=== PATIENT | female | born 1980 | race Caucasian/White ===

== ENCOUNTER 2021-05-18 07:50 | Inpatient (IN) | payer OTHER ==
[2021-05-18] MEDS ORDERED: DEXTROSE 5%-LACTATED RINGERS 1,000 ML IV SCH (08:30)
[2021-05-18] MEDS ORDERED: PROMETHAZINE HCL 25 MG/1 ML VIAL IVPB ONE (08:30)
[2021-05-18] MEDS ORDERED: BUTORPHANOL TARTRATE 2 MG/ML VIAL IVPB ONE (08:30)
[2021-05-18] MEDS ORDERED: BUTORPHANOL TARTRATE 2 MG/ML VIAL ONE (09:29)
[2021-05-18] MEDS ORDERED: PROMETHAZINE HCL 25 MG/1 ML VIAL ONE (09:29)
[2021-05-18 10:34] LABS: BASO % 0.5 % (0-2.0); EOS % 0.7 % (0-4.5); HEMATOCRIT 37.5 % (32.4-45.2); HEMOGLOBIN 12.9 GM/dL (10.7-15.3); LYMPH % 17.7 % (8-40); MCH 31.3 pg (25.7-33.7); MCHC 34.5 g/dl (32.0-36.0); MEAN CELL VOLUME 90.7 fl (80-96); MEAN PLT VOLUME 9.5 fl (7.5-11.1); MONO % 7.9 % (3.8-10.2); NEUT % 73.2 % (42.8-82.8); PLATELET COUNT 183 10^3/uL (134-434); RBC 4.13 M/mm3 (3.60-5.2); WHITE BLOOD COUNT 10.8 K/mm3 (4.0-10.0)
[2021-05-18 10:42] LABS: INR 0.93 (0.83-1.09); PROTHROMBIN TIME (PATIENT) 10.7 SEC (9.7-13.0)
[2021-05-18 10:44] LABS: ACTIVATED PTT 30.4 SECONDS (25.2-36.5)
[2021-05-18 10:45] VITALS: BMI 31.1
[2021-05-18 10:57] LABS: BLOOD UREA NITROGEN 9.9 mg/dL (7-18)
[2021-05-18 11:00] LABS: CREATININE 0.5 mg/dL (0.55-1.3)
[2021-05-18] MEDS ORDERED: OXYTOCIN 20 UNITS in 0.9% NS 20 UNIT/1,000 ML INFUS.BAG IV ONE (11:59)
[2021-05-18] MEDS ORDERED: WITCH HAZEL 50% (TUCKS) 40 PAD/JAR PAD TP PRN (12:17)
[2021-05-18] MEDS ORDERED: BENZOCAINE 20% 57 GM BOTTLE TP PRN (12:17)
[2021-05-18] MEDS ORDERED: METHYLERGONOVINE MALEATE 0.2 MG/1 ML AMP IM PRN (12:17)
[2021-05-18] MEDS ORDERED: BENZOCAINE 28 GM HEMORRHOIDAL OINTMENT TP PRN (12:17)
[2021-05-18] MEDS ORDERED: ACETAMINOPHEN 325 MG TABLET (FP) PO PRN (12:17)
[2021-05-18] MEDS ORDERED: oxyCODONE HCL 5 MG TABLET PO PRN (12:17)
[2021-05-18] MEDS ORDERED: BISACODYL 10 MG SUPP.RECT RC PRN (12:17)
[2021-05-18] MEDS ORDERED: OXYTOCIN 20 UNITS in 0.9% NS 20 UNIT/1,000 ML INFUS.BAG IV SCH (12:30)
[2021-05-18 12:58] LABS: CORD HCO3 22.8 mmHg (20-29); CORD PCO2 47.2 mmHg (30-78); CORD pH 7.301 (7.14-7.44)
[2021-05-18 13:00] LABS: CORD BASE EXCESS -5.3 mmol/L (0-2); CORD HCO3 23.8 mmHg (20-29); CORD PCO2 59.8 mmHg (30-78); CORD pH 7.217 (7.14-7.44)
[2021-05-18 15:13] LABS: METHADONE, UR NEGATIVE (NEGATIVE); PHENCYCLIDINE,URINE NEGATIVE (NEGATIVE); URINE BENZODIAZEPINES NEGATIVE (NEGATIVE)
[2021-05-18 15:14] LABS: COCAINE, UR NEGATIVE (NEGATIVE); OPIATES, URI NEGATIVE (NEGATIVE); URINE BARBITURATES NEGATIVE (NEGATIVE)
[2021-05-18 15:15] LABS: URINE AMPHETAMINES NEGATIVE (NEGATIVE)
[2021-05-18] MEDS: IBUPROFEN 600 MG TABLET (FP) PO PRN (18:21)
[2021-05-19 09:04] LABS: BASO % 0.5 % (0-2.0); EOS % 1.3 % (0-4.5); HEMATOCRIT 33.2 % (32.4-45.2); HEMOGLOBIN 11.2 GM/dL (10.7-15.3); LYMPH % 19.6 % (8-40); MCH 31.2 pg (25.7-33.7); MCHC 33.9 g/dl (32.0-36.0); MEAN CELL VOLUME 92.2 fl (80-96); MEAN PLT VOLUME 9.8 fl (7.5-11.1); MONO % 9.6 % (3.8-10.2); PLATELET COUNT 169 10^3/uL (134-434); RDW 14.2 % (11.6-15.6)
[2021-05-19] MEDS: IBUPROFEN 600 MG TABLET (FP) PO PRN (20:13)
[2021-05-19] MEDS ORDERED: SENNOSIDES/DOCUSATE COMBO (SENNA PLUS) TABLET (UD) PO PRN (22:00)
[2021-05-20] MEDS: IBUPROFEN 600 MG TABLET (FP) PO PRN (05:50)
[2021-05-20 10:23] VITALS: BP 143/76; PULSE 84; TEMP 98.1
== END 2021-05-20 11:30 | disposition home or self-care (01) | DRG 560 ==
LOC: JDEL 07:50 → EDBD 07:50 → JLDR 08:30 → J3W 15:00
PROVIDERS: ADMIT Obstetrics & Gynecology; ATTEND Obstetrics & Gynecology
PROC: 10E0XZZ Delivery of Products of Conception, External Approach (ICD-10-PCS; principal; 2021-05-18)
PROC: 10907ZC Drainage of Amniotic Fluid, Therapeutic from Products of Conception, Via Natural or Artificial Opening (ICD-10-PCS; 2021-05-18)
DX: O80 Encounter for full-term uncomplicated delivery (principal); Z3A.38 38 weeks gestation of pregnancy; Z37.0 Single live birth
CPT/HCPCS: 36415; 36600; 59409; 80048; 80307; 82803; 85025; 85610; 85730; 86762; 86780; 86850; 86900; 86901; 87340; C9803; U0003; U0005

== ENCOUNTER 2021-05-22 14:15 | Emergency (ER) | payer OTHER ==
[2021-05-22 14:25] VITALS: BP 124/94; PULSE 84; TEMP 98.1; BMI 29.5
[2021-05-22 15:34] LABS: BASO % 0.6 % (0-2.0); HEMATOCRIT 36.3 % (32.4-45.2); HEMOGLOBIN 12.4 GM/dL (10.7-15.3); LYMPH % 20.5 % (8-40); MCH 31.2 pg (25.7-33.7); MCHC 34.2 g/dl (32.0-36.0); MEAN CELL VOLUME 91.3 fl (80-96); MEAN PLT VOLUME 8.8 fl (7.5-11.1); MONO % 7.1 % (3.8-10.2); NEUT % 68.8 % (42.8-82.8); PLATELET COUNT 235 10^3/uL (134-434); RBC 3.98 M/mm3 (3.60-5.2); WHITE BLOOD COUNT 8.9 K/mm3 (4.0-10.0)
[2021-05-22 15:48] LABS: EPI CELLS 8 /uL (0-25.1); HYALINE CASTS 1 /uL (0-3.1); PH,URINE 6.5 (5.0-8.0); URINE APPEARANCE CLEAR; URINE BACTERIA 362 /uL (0-1359); URINE BILIRUBIN NEGATIVE (NEGATIVE); URINE COLOR YELLOW; URINE GLUCOSE (UA) NEGATIVE (NEGATIVE); URINE KETONE NEGATIVE (NEGATIVE); URINE LEUK ESTERASE 2+ (NEGATIVE); URINE NITRITE NEGATIVE (NEGATIVE); URINE PROTEIN NEGATIVE (NEGATIVE); URINE RBC 10 /uL (0-23.9); URINE UROBILINOGEN 0.2 mg/dL (0.2-1.0); URINE WBC 120 /uL (0-25.8)
[2021-05-22 15:52] LABS: CALCIUM 8.9 mg/dL (8.5-10.1)
[2021-05-22 15:54] LABS: ALBUMIN 2.9 g/dl (3.4-5.0); BLOOD UREA NITROGEN 9.9 mg/dL (7-18); MAGNESIUM 1.9 mg/dL (1.8-2.4)
[2021-05-22 15:56] LABS: CREATININE 0.5 mg/dL (0.55-1.3); URIC ACID 4.1 mg/dL (2.6-7.2)
[2021-05-22 15:58] LABS: BILIRUBIN,TOTAL 0.2 mg/dL (0.2-1); TOT PROT 6.5 g/dl (6.4-8.2)
[2021-05-22] MEDS ORDERED: IBUPROFEN 600 MG TABLET (FP) PO ONE ×2 (16:38→16:44)
[2021-05-22] MEDS ORDERED: LABETALOL HCL 100 MG TABLET (FP) PO ONE (17:47)
[2021-05-22] MEDS ORDERED: LABETALOL HCL 100 MG TABLET (FP) ONE (18:52)
== END 2021-05-22 19:07 | disposition home or self-care (01) ==
LOC: JER 14:15
DX: R51.9 Headache, unspecified (principal); R03.0 Elevated blood-pressure reading, without diagnosis of hypertension
CPT/HCPCS: 36415; 70450-TC; 80053; 81003; 83615; 83735; 84550; 85025; 99284-25

== ENCOUNTER 2021-11-29 09:25 | Emergency (ER) | payer OTHER ==
[2021-11-29 09:42] VITALS: BP 156/69; PULSE 95; RESP 18; TEMP 97.9; BMI 29.2
[2021-11-29] MEDS ORDERED: ACETAMINOPHEN 500 MG TABLET (FP) PO ONE (10:04)
[2021-11-29] MEDS ORDERED: ACETAMINOPHEN INJECTION 0 ML IVPB ONE (10:12)
[2021-11-29] MEDS ORDERED: ACETAMINOPHEN 500 MG TABLET (FP) ONE (11:52)
[2021-11-29 11:56] LABS: BASO % 0.7 % (0-2.0); EOS % 1.8 % (0-4.5); HEMATOCRIT 41.1 % (32.4-45.2); HEMOGLOBIN 13.5 GM/dL (10.7-15.3); LYMPH % 23.7 % (8-40); MCH 29.9 pg (25.7-33.7); MCHC 32.8 g/dl (32.0-36.0); MEAN CELL VOLUME 91.3 fl (80-96); MEAN PLT VOLUME 9.4 fl (7.5-11.1); MONO % 7.3 % (3.8-10.2); NEUT % 66.5 % (42.8-82.8); PH,URINE 6.5 (5.0-8.0); PLATELET COUNT 242 10^3/uL (134-434); RBC 4.51 M/mm3 (3.60-5.2); RDW 13.5 % (11.6-15.6); URINE APPEARANCE CLEAR; URINE BILIRUBIN NEGATIVE (NEGATIVE); URINE COLOR DK YELLOW; URINE GLUCOSE (UA) NEGATIVE (NEGATIVE); URINE KETONE NEGATIVE (NEGATIVE); URINE LEUK ESTERASE NEGATIVE (NEGATIVE); URINE NITRITE NEGATIVE (NEGATIVE); URINE PROTEIN NEGATIVE (NEGATIVE); URINE UROBILINOGEN 0.2 mg/dL (0.2-1.0); WHITE BLOOD COUNT 7.4 K/mm3 (4.0-10.0)
[2021-11-29 12:12] LABS: CHLORIDE 105 mmol/L (98-107); SODIUM 140 mmol/L (136-145)
[2021-11-29 12:13] LABS: CALCIUM 8.9 mg/dL (8.5-10.1)
[2021-11-29 12:14] LABS: ANION GAP 10 MMOL/L (8-16); BLOOD UREA NITROGEN 11.2 mg/dL (7-18); CO2 24 mmol/L (21-32); GLUCOSE,RANDOM 98 mg/dL (74-106)
[2021-11-29 12:17] LABS: CREATININE 0.5 mg/dL (0.55-1.3)
== END 2021-11-29 12:56 | disposition home or self-care (01) ==
LOC: JERFT 09:25 → JER 09:25 → JERFT 12:56
DX: O26.891 Other specified pregnancy related conditions, first trimester (principal); Z3A.01 Less than 8 weeks gestation of pregnancy
CPT/HCPCS: 36415; 76817-TC; 80048; 81003; 84702; 85025; 86850; 86900; 86901; 87086; 99284-25

== ENCOUNTER 2021-12-04 12:16 | Emergency (ER) | payer OTHER ==
[2021-12-04 12:24] VITALS: BP 122/75; PULSE 77; RESP 18; TEMP 97; BMI 30.4
== END 2021-12-04 16:58 | disposition home or self-care (01) ==
LOC: JER 12:16
DX: O02.1 Missed abortion (principal)
CPT/HCPCS: 36415; 76817-TC; 84702; 99284-25

== ENCOUNTER 2021-12-20 14:32 | Emergency (ER) | payer OTHER ==
[2021-12-20 14:37] VITALS: BP 115/74; PULSE 62; RESP 18; TEMP 97; BMI 29.5
[2021-12-20] MEDS ORDERED: IBUPROFEN 400 MG TABLET (FP) PO ONE ×2 (15:26→15:30)
[2021-12-20] MEDS ORDERED: DIPHTH,PERTUSS(ACELL),TET 0.5 ML DISP.SYRIN IM ONE ×2 (15:26→15:30)
== END 2021-12-20 18:12 | disposition home or self-care (01) ==
LOC: JERFT 14:32
PROC: 3E0234Z Introduction of Serum, Toxoid and Vaccine into Muscle, Percutaneous Approach (ICD-10-PCS; principal; 2021-12-20)
DX: R51.9 Headache, unspecified (principal); M79.673 Pain in unspecified foot; M54.50 Low back pain, unspecified; W20.8XXA Other cause of strike by thrown, projected or falling object, initial encounter
CPT/HCPCS: 70450-TC; 72100-TC-FY; 73630-TC-RT-FY; 90471; 90715; 99284-25

== ENCOUNTER 2023-09-24 21:45 | Emergency (ER) | payer OTHER ==
[2023-09-24 21:53] VITALS: BP 142/81; PULSE 68; RESP 17; TEMP 98; BMI 32.1
[2023-09-24 22:46] LABS: BASO % 1.2 % (0-2.0); EOS % 2.4 % (0-4.5); HEMATOCRIT 38.2 % (32.4-45.2); HEMOGLOBIN 13.1 GM/dL (10.7-15.3); LYMPH % 30.4 % (8-40); MCH 30.6 pg (25.7-33.7); MCHC 34.3 g/dl (32.0-36.0); MEAN CELL VOLUME 89.4 fl (80-96); MEAN PLT VOLUME 9.2 fl (7.5-11.1); PLATELET COUNT 292 10^3/uL (134-434); RBC 4.28 M/mm3 (3.60-5.2); RDW 13.3 % (11.6-15.6); WHITE BLOOD COUNT 9.8 K/mm3 (4.0-10.0)
[2023-09-24 22:54] LABS: INR 0.95 (0.83-1.09); PROTHROMBIN TIME (PATIENT) 10.9 SEC (9.7-13.0)
[2023-09-24 22:57] LABS: ACTIVATED PTT 35.1 SECONDS (25.2-36.5)
[2023-09-24 23:00] LABS: POTASSIUM 3.9 mmol/L (3.5-5.1)
[2023-09-24 23:02] LABS: CALCIUM 8.5 mg/dL (8.5-10.1)
[2023-09-24 23:03] LABS: ALBUMIN 3.6 g/dl (3.4-5.0); BLOOD UREA NITROGEN 16.7 mg/dL (7-18)
[2023-09-24 23:06] LABS: CREATININE 0.7 mg/dL (0.55-1.3)
[2023-09-24 23:08] LABS: BILIRUBIN,TOTAL 0.2 mg/dL (0.2-1)
== END 2023-09-24 23:59 | disposition home or self-care (01) ==
LOC: JER 21:45
DX: R07.89 Other chest pain (principal); R06.02 Shortness of breath; Z20.822 Contact with and (suspected) exposure to COVID-19
CPT/HCPCS: 0241U-QW; 36415; 71046-TC-FY; 80053; 84484; 84703; 85025; 85379; 85610; 85730; 93005; 93010; 99284-25

== ENCOUNTER 2024-12-12 22:55 | Emergency (ER) | payer BC, OTHER ==
[2024-12-12 23:11] VITALS: TEMP 98.2; BMI 29.8
[2024-12-12 23:41] VITALS: BP 139/81; PULSE 65; RESP 16
[2024-12-12] MEDS ORDERED: MAG HYDROX/AL HYDROX/SIMETH 30 ML UNIT-DOSE CUP ONE (23:44)
[2024-12-12] MEDS ORDERED: ONDANSETRON 4 MG/2 ML VIAL ONE (23:44)
[2024-12-12] MEDS ORDERED: ACETAMINOPHEN INJECTION 100 ML ONE (23:44)
[2024-12-12] MEDS ORDERED: FAMOTIDINE 20 MG/50 ML IVPB 20 MG/50 ML MG IVPB ONE (23:44)
[2024-12-13] MEDS: MAG HYDROX/AL HYDROX/SIMETH 30 ML UNIT-DOSE CUP PO ONE (00:02)
[2024-12-13] MEDS: ACETAMINOPHEN 1000 MG/100 ML BAG IVPB ONE (00:39)
[2024-12-13] MEDS: ONDANSETRON 4 MG/2 ML VIAL IVPUSH ONE (00:39)
[2024-12-13] MEDS: FAMOTIDINE 20 MG/50 ML IVPB 20 MG/50 ML MG IVPB ONE (00:39)
[2024-12-13 00:59] LABS: ABSOLUTE IMMATURE GRANULOCYTES 0.02 x10^3/uL (0.0-0.031); BASOPHILS # 0.06 x10^3/uL (0.01-0.08); EOSINOPHIL % 2.5 % (0.7-5.8); EOSINOPHILS # 0.19 x10^3/uL (0.04-0.36); MCHC 32.8 g/dl (32.2-35.5); MEAN CELL VOLUME 91.6 fl (79.4-94.8); MEAN PLT VOLUME 10.9 fl (9.4-12.3); MONOCYTE # 0.61 x10^3/uL (0.24-0.86); MONOCYTE % 8.1 % (4.7-12.5); RDW 12.1 % (12.2-17.1)
[2024-12-13 01:23] LABS: GLUCOSE,RANDOM 98.0 mg/dL (74-106)
[2024-12-13 01:24] LABS: TOT PROT 6.5 g/dl (6.4-8.2)
[2024-12-13 01:25] LABS: CO2 23.0 mmol/L (21-32)
[2024-12-13 01:26] LABS: ALK PHOS 58.0 U/L (40-150)
[2024-12-13 01:29] LABS: SGOT/AST 24.0 U/L (5-34); SGPT/ALT 25.0 U/L (0-55)
[2024-12-13 01:30] LABS: CREATININE 0.51 mg/dL (0.55-1.3)
[2024-12-13 01:48] LABS: HCV DIAGNOSTIC IN-HOUSE W/RFLX NON-REACTIVE (NONREACTIVE); HIV INTERPRETATION NEGATIVE (NEGATIVE)
== END 2024-12-13 01:53 | disposition home or self-care (01) ==
LOC: JER 22:55
PROC: 3E033NZ Introduction of Analgesics, Hypnotics, Sedatives into Peripheral Vein, Percutaneous Approach (ICD-10-PCS; principal; 2024-12-13)
DX: R07.89 Other chest pain (principal)
CPT/HCPCS: 36415; 71045-TC-FY; 80053; 83735; 84484; 85025; 86803; 87389; 93005; 93010; 99285-25